=== PATIENT | female | born 1980 | race Caucasian/White ===

== ENCOUNTER 2017-09-25 01:35 | Inpatient (IN) | payer OTHER ==
[~2017-09-25] VITALS: Ht 170.2 cm; Wt 65.0 kg
[2017-09-25] VITALS (81 sets, daily range): BP systolic 102–138; BP diastolic 52–107; PULSE 73–114; RESP 15–20; TEMP 97.8–98.9; O2SAT 99–100
[2017-09-25] MEDS ORDERED: DOXY10TA (01:42)
[2017-09-25] MEDS ORDERED: FAMO1TAB37 PO (01:42)
[2017-09-25] MEDS ORDERED: ePHEDrine/NS 25 MG/5 ML SYRINGE ONE (01:45)
[2017-09-25] MEDS ORDERED: LACTATED RINGER'S 1000 ML INJ 1,000 ML IV SCH (01:47)
[2017-09-25] MEDS ORDERED: LACTATED RINGER'S 1000 ML INJ 1,000 ML IV PRN (01:47)
[2017-09-25] MEDS ORDERED: TERBUTALINE INJ 1 MG/ML AMP ONE (01:48)
--- NOTE | 2017-09-25 01:56 | PD ---
HPI Chief Complaint ROM, ctx Date Seen: Sep 25, 2017 Time Seen: 01:53 Travel History International Travel<30 Days: No Contact w/Intl Traveler<30Days: No Known Affected Area: No History of Present Illness HPI Pt is a 37y/o G1 @ 38.5wks. She has PNC with Dr. Acevedo. She presents this evening with c/o ROM and abdominal pain since 10pm. She states that she has had continued LOF. No VB. +FM. is c/b GERD. She last ate at 7pm ( full meal and ice cream). Weeks Gestation: 38 Para: 0 : 1 History Past Medical History Medical History: Denies Significant Hx Past Surgical History Surgical History: No Previous Surgery Family History Family History: Negative Social History Alcohol Use: No Tobacco Use: No Substance Abuse: No Allergies-Medications (Allergen,Severity, Reaction): Coded Allergies: No Known Allergies (Unverified , 09/25/17) Home Meds Reported Medications Doxylamine-Pyridoxine (Diclegis) 10-10 Mg Tab 09/25/17 Famotidine (Pepcid) 20 Mg Tab, 20 MG PO BID, #60 TAB 0 Refills 09/25/17 Review of Systems Except as stated in HPI: all other systems reviewed are Neg Physical Exam Narrative General: well developed, well nourished, no acute distress HEENT: normocephalic atraumatic, extraocular movements intact, neck supple Abdomen: soft, gravid, nontender, nondistended Uterus: fundus term Extremities: full range of motion Skin: normal coloration, no rashes, no suspicious skin lesions noted Neurologic: cranial nerves 2-12 grossly intact, normal muscle tone, normal gait Psychiatric: normal mood and affect, appropriate FHTs: 140s, +accels, late decelerations, moderate variability [place]: ctx q2-3m Cvx: 4-5/60/-3, posterior Data Data Vital Signs Reviewed: Yes Orders Orders Ephedrine/Ns 25 Mg/5 Ml Syr (Ephedrine/N (09/25/17 01:45) Terbutaline Inj (Brethine Inj) (09/25/17 01:48) Vital Signs (Adult) .ON ADMISSION (09/25/17 01:47) ^ Labor Status (09/25/17 01:47) ^ Non Stress Test (09/25/17 01:47) Admit To Inpatient (09/25/17 ) Vital Signs (Adult) .Per protocol (09/25/17 01:47) Heart (09/25/17 01:47) Amnioinfusion (09/25/17 01:47) Urinary Catheter Management .ONCE (09/25/17 01:47) Lactated Ringer's 1000 Ml Inj (Lr 1000 M (09/25/17 01:47) Lactated Ringer's 1000 Ml Inj (Lr 1000 M (09/25/17 01:47) Sodium Chlorid 0.9% 500 Ml Inj (Ns 500 M (09/25/17 02:00) Sodium Chlor 0.9% 1000 Ml Inj (Ns 1000 M (09/25/17 02:07) Lidocaine 1% Inj (50 Ml) (Xylocaine 1% I (09/25/17 02:00) Citric Acid-Sodium Citrate Liq (Bicitra (09/25/17 02:00) Fentanyl Inj (Fentanyl Inj) (09/25/17 02:00) Fentanyl Inj (Fentanyl Inj) (09/25/17 02:00) Penicillin G Potassium Inj (Pfizerpen-G (09/25/17 02:00) Penicillin G Potassium Inj (Pfizerpen-G (09/25/17 06:00) Complete Blood Count With Diff (09/25/17 01:47) Hold Clot (09/25/17 01:47) Abo/Rh Blood Type (09/25/17 01:47) Urinalysis - C+S If Indicated (09/25/17 01:47) Drug Screen, Random Urine (09/25/17 01:47) Resp Oxygen Non Rebreathe Mask (09/25/17 ) ^ Epidural / Intrathecal Infus (09/25/17 01:47) Oxytocin 30 Units-500ml Premix (Pitocin (09/25/17 02:00) Lidocaine 1% Inj (50 Ml) (Xylocaine 1% I (09/25/17 02:00) Light Mineral Oil (Muri-Lube Oil) (09/25/17 02:00) Inpatient Certification (09/25/17 ) Specimen To Be Collected PRN (09/25/17 01:47) Specimen To Be Collected PRN (09/25/17 01:47) Group B Strep: Positive Rober Royal MD Sep 25, 2017 01:56
[2017-09-25] MEDS ORDERED: LIDOCAINE HCL 1% 50 ML VIAL I-DERMAL PRN (02:00)
[2017-09-25] MEDS ORDERED: fentaNYL 2MCG-BUPIV 0.125% INJ 100 ML ONE ×2 (02:00→08:01)
[2017-09-25] MEDS ORDERED: LIDOCAINE HCL 1% 50 ML VIAL INFIL PRN (02:00)
[2017-09-25] MEDS ORDERED: OXYTOCIN 30 UNITS-500ML PREMIX 500 ML IV ONE ×2 (02:00→12:00)
[2017-09-25] MEDS ORDERED: CITRIC ACID-SODIUM CITRATE LIQ 30 ML UDC PO SCH (02:00)
[2017-09-25] MEDS ORDERED: PENICILLIN G POTASSIUM INJ 5,000,000 UNITS in SODIUM CHLORIDE 0.9% INJ 100 ML IV ONE (02:00)
[2017-09-25] MEDS ORDERED: SODIUM CHLORID 0.9% 500 ML INJ 500 ML IV PRN (02:00)
[2017-09-25] MEDS ORDERED: MINERAL OIL 10 ML VIAL TOPICAL PRN (02:00)
[2017-09-25 02:01] LABS: AUTOMATED NEUTROPHIL # 4.7 TH/MM3 (1.8-7.7); BASOPHIL % 0.4 % (0.0-2.0); EOSINOPHIL # 0.1 TH/MM3 (0-0.4); EOSINOPHIL % 0.7 % (0.0-4.0); HEMOGLOBIN 10.7 GM/DL (11.6-15.3); LYMPH % 27.1 % (9.0-44.0); MEAN CELL VOLUME 90.6 FL (80.0-100.0); MEAN CORPUSCULAR HEMOGLOBIN 31.2 PG (27.0-34.0); MEAN CORPUSCULAR HGB CONC 34.5 % (32.0-36.0); MEAN PLATELET VOLUME 10.7 FL (7.0-11.0); MONO % 6.6 % (0.0-8.0); MONOCYTE # 0.5 TH/MM3 (0-0.9); NEUT % 65.2 % (16.0-70.0); PLATELET COUNT 131 TH/MM3 (150-450); RED BLOOD COUNT 3.42 MIL/MM3 (4.00-5.30); RED CELL DISTRIBUTION WIDTH 13.6 % (11.6-17.2); WHITE BLOOD COUNT 7.2 TH/MM3 (4.0-11.0)
[2017-09-25] MEDS ORDERED: SODIUM CHLOR 0.9% 1000 ML INJ 1,000 ML IV PRN (02:07)
--- NOTE | 2017-09-25 03:18 | PD.LABORPN ---
Subjective Subjective very painful in active labor and distraught about possible section due to initial tracing concerns Objective Vital Signs Vital Signs Date Time Temp Pulse Resp B/P (MAP) Pulse Ox O2 Delivery O2 Flow Rate FiO2 09/25/17 02:40 90 120/59 (79) 100 09/25/17 02:40 91 09/25/17 02:35 97 122/55 (77) 100 09/25/17 02:35 103 09/25/17 02:30 114 114/64 (81) 100 09/25/17 02:30 114 09/25/17 02:26 138/107 (117) 09/25/17 02:25 106 100 09/25/17 02:20 98 100 09/25/17 02:15 96 100 09/25/17 02:10 89 100 09/25/17 02:05 96 100 09/25/17 02:00 90 100 09/25/17 01:55 82 09/25/17 01:54 83 133/65 (87) 09/25/17 01:52 98.0 09/25/17 01:50 81 Objective since terbutaline given and UCs knocked out there are no more decelerations and reasonable BTBV cervix 90%/5/-2 and posterior. EFW 7 pounds and pelvis clinically adequate Weeks Gestation: 38 Gest Age Assessed Date: Sep 25, 2017 Gest Age Assessed Time: 03:16 Pt started active labor?: Yes Active labor start date: Sep 25, 2017 Active labor start time: 00:30 Medical induction of labor?: No Artificial rupture of membrane: No Assessment/Plan Problem List: (1) Third trimester ICD Codes: Z34.93 - Encounter for supervision of normal , unspecified , third trimester (2) heart rate decelerations affecting management of mother ICD Codes: O36.8390 - Maternal care for abnormalities of the heart rate or rhythm, unspecified trimester, not applicable or unspecified Assessment and Plan watch closely post epidural and if needed resume pitocin. If not tolerated with section. patient aware. Radhika Vallecillo MD Sep 25, 2017 03:18
[2017-09-25 03:42] LABS: BILIRUBIN, URINE NEG (NEG); BLOOD, URINE NEG (NEG); GLUCOSE,URINE NEG (NEG); KETONE, URINE NEG (NEG); NITRITE,URINE NEG (NEG); PH, URINE 7.5 (5.0-8.5); SQUAMOUS EPITHELIAL CELL URINE <1 /hpf (0-5); URINE COLOR LIGHT-YELLOW (YELLW/STRAW); URINE LEUKOCYTE ESTERASE NEG (NEG)
[2017-09-25] MEDS ORDERED: OXYTOCIN 30 UNITS-500ML PREMIX 500 ML IV PRN (05:30)
[2017-09-25] MEDS ORDERED: PENICILLIN G POTASSIUM INJ 2,500,000 UNITS in SODIUM CHLORIDE 0.9% INJ 100 ML IV SCH (06:00)
--- NOTE | 2017-09-25 06:27 | PD.LABORPN ---
Subjective Subjective Began feeling UCs as soon as pitocin started at 2 mu/min Objective Vital Signs Vital Signs Date Time Temp Pulse Resp B/P (MAP) Pulse Ox O2 Delivery O2 Flow Rate FiO2 09/25/17 06:00 79 09/25/17 06:00 86 112/64 (80) 100 09/25/17 05:55 86 100 09/25/17 05:50 87 100 09/25/17 05:45 93 09/25/17 05:45 96 117/70 (86) 100 09/25/17 05:40 100 09/25/17 05:40 86 09/25/17 05:35 88 09/25/17 05:35 100 09/25/17 05:30 100 09/25/17 05:30 79 104/62 (76) 09/25/17 05:30 80 09/25/17 05:25 79 09/25/17 05:25 100 09/25/17 05:20 100 09/25/17 05:20 79 09/25/17 05:15 100 09/25/17 05:15 84 118/73 (88) 09/25/17 05:15 89 09/25/17 05:10 79 100 09/25/17 05:05 89 100 09/25/17 05:00 81 09/25/17 05:00 98.9 76 15 108/62 (77) 09/25/17 05:00 100 09/25/17 04:55 80 100 09/25/17 04:50 77 100 09/25/17 04:45 80 103/60 (74) 100 09/25/17 04:45 75 09/25/17 04:40 76 100 09/25/17 04:35 75 100 18 04:30 87 18 04:30 80 111/61 (78) 100 18 04:25 82 100 09/25/17 04:20 82 100 18 04:15 76 1618 04:15 77 110/62 (78) 100 18 04:10 75 100 09/25/17 04:05 81 100 09/25/17 04:00 87 09/25/17 04:00 86 113/64 (80) 100 09/25/17 03:55 87 100 2/16/18 03:50 80 100 2/16/18 03:45 82 104/59 (74) 100 2/16/18 03:45 79 2/16/18 03:40 82 100 2/16/18 03:35 86 100 2/16/18 03:30 86 109/58 (75) 100 2/16/18 03:30 80 2/16/18 03:25 88 100 2/16/18 03:20 87 100 2/16/18 03:15 83 102/52 (69) 100 2/16/18 03:15 82 2/16/18 03:10 89 100 2/16/18 03:05 90 100 2/16/18 03:00 95 106/52 (70) 2/16/18 03:00 90 2/16/18 03:00 15 2/16/18 03:00 100 2/16/18 02:55 93 104/57 (73) 2/16/18 02:55 92 2/16/18 02:55 100 2/16/18 02:50 88 2/16/18 02:50 100 2/16/18 02:50 92 121/62 (81) 2/16/18 02:45 89 116/61 (79) 2/16/18 02:45 100 2/16/18 02:45 91 2/16/18 02:40 90 120/59 (79) 100 2/16/18 02:40 91 2/16/18 02:35 97 122/55 (77) 100 2/16/18 02:35 103 2/16/18 02:30 114 114/64 (81) 100 2/16/18 02:30 114 2/16/18 02:26 138/107 (117) 2/16/18 02:25 106 100 2/16/18 02:20 98 100 2/16/18 02:15 96 100 2/16/18 02:10 89 100 2/16/18 02:05 96 100 2/16/18 02:00 20 2/16/18 02:00 90 100 2/16/18 01:55 82 2/16/18 01:55 100 2/16/18 01:54 83 133/65 (87) 2/16/18 01:52 98.0 2/16/18 01:50 81 2/16/18 01:50 100 Objective 7/90%/-1 infant LOP strip has excellent to marked variability; variables with contractions Weeks Gestation: 38 Gest Age Assessed Date: Sep 25, 2017 Gest Age Assessed Time: 03:16 Pt started active labor?: Yes Active labor start date: Sep 25, 2017 Active labor start time: 00:30 Medical induction of labor?: No Artificial rupture of membrane: No Assessment/Plan Problem List: (1) Third trimester ICD Codes: Z34.93 - Encounter for supervision of normal , unspecified , third trimester (2) heart rate decelerations affecting management of mother ICD Codes: O36.8390 - Maternal care for abnormalities of the heart rate or rhythm, unspecified trimester, not applicable or unspecified Assessment and Plan IUPC placed. amnio infusion keep pitocin at 2 mu/min cautiously optimistic Radhika Vallecillo MD Sep 25, 2017 06:27
[2017-09-25] MEDS ORDERED: ONDANSETRON HCL 4 MG/2 ML VIAL ONE (09:06)
--- NOTE | 2017-09-25 10:48 | PD.OB.DELI ---
Weeks gestation: 38 Gest age assessed date: Sep 25, 2017 Gest age assessed time: 03:16 Pt started active labor?: Yes Active labor start date: Sep 25, 2017 Active labor start time: 00:30 Medical induction of labor?: No Artificial rupture of membrane: No Anesthesia: Epidural Episiotomy: None Vaginal Delivery: Normal Presentation: Occiput anterior Nuchal Cord: None Delayed cord clamping (45 sec): Yes : Female Delivery date: Sep 25, 2017 Delivery time: 10:28 One Minute : 8 Five Minute : 9 Weight: pending Placenta: Spontaneous delivery, Intact Laceration: 2 deg Repair: Chromic interrupted (3-0 on SH for bilateral periurethral), Chromic running (for 2nd degree lac) Estimated blood loss: 300ml Romelia Sunshine MD Sep 25, 2017 10:48
--- NOTE | 2017-09-25 10:50 | HHI.DCPOC ---
Discharge Care Plan Diagnosis: (1) (spontaneous vaginal delivery) Your Health Problems Are: Vaginal delivery Report Symptoms to Your Doctor -Temperature above 100.5 degrees -Redness, of incision or excessive or foul smelling drainage -Unusual pain or calf pain -Increased vaginal bleeding -Painful or difficulty urinating -Feelings of extreme sadness or anxiety after 2 weeks Goals to Promote Your Health * To prevent worsening of your condition and complications * To maintain your health at the optimal level Directions to Meet Your Goals Take your medications as prescribed Follow your dietary instruction Follow activity as directed Ensure plenty of rest for recovery Drink fluids for hydration Keep your appointments as scheduled Take your immunizations and boosters as scheduled If your symptoms worsen call your PCP, if no PCP go to Urgent Care Center or Emergency Room Smoking is Dangerous to Your Health. Avoid second hand smoke Call the 24-hour crisis hotline for domestic abuse at Romelia Sunshine MD Sep 25, 2017 10:50
[2017-09-25] MEDS ORDERED: ALUMINUM/MAGNESIUM/SIMETH 30 ML CUP PO PRN ×2 (11:00→11:30)
[2017-09-25] MEDS ORDERED: BENZOCAINE 20% TOPICAL SPRAY 60 ML CAN TOPICAL PRN ×2 (11:00→11:30)
[2017-09-25] MEDS ORDERED: ONDANSETRON ODT 4 MG TAB PO PRN ×2 (11:00→11:30)
[2017-09-25] MEDS ORDERED: ZOLPIDEM TARTRATE 5 MG TAB PO PRN ×2 (11:00→11:30)
[2017-09-25] MEDS ORDERED: WITCH HAZEL 50%/GLYCERIN 12.5% 40 PAD JAR TOPICAL PRN ×2 (11:00→11:30)
[2017-09-25] MEDS ORDERED: ACETAMINOPHEN 325 MG TAB PO PRN ×2 (11:00→11:30)
[2017-09-25] MEDS ORDERED: OXYTOCIN 30 UNITS-500ML PREMIX 500 ML IV SCH ×2 (11:00→12:00)
[2017-09-25] MEDS ORDERED: SODIUM CHLORIDE 0.9% FLUSH 10 ML FLUSH IV FLUSH PRN ×2 (11:00→11:30)
[2017-09-25] MEDS ORDERED: DOCUSATE SODIUM 50 MG/SENNA 8.6 MG TAB PO PRN ×2 (11:00→11:30)
[2017-09-25] MEDS ORDERED: IBUPROFEN 800 MG TAB PO PRN ×2 (11:00→11:30)
[2017-09-25] MEDS ORDERED: oxyCODONE/ACETAMINOPHEN 5 MG/325 MG TAB PO PRN ×2 (11:30)
[2017-09-25] MEDS ORDERED: ONDANSETRON HCL 4 MG/2 ML VIAL IV PUSH ONE (12:00)
[2017-09-25] MEDS ORDERED: DIPHTH/TETANUS/ACEL PERTUSSIS (BOOSTER) 0.5 ML VIAL/PFS IM ONE (16:00)
[2017-09-25] MEDS ORDERED: MEASLES, MUMPS, RUBELLA VACCINE 0.5 ML VIAL SQ ONE (16:00)
[2017-09-25] MEDS ORDERED: SODIUM CHLORIDE 0.9% FLUSH 10 ML FLUSH IV FLUSH SCH ×2 (21:00)
[2017-09-25] MEDS: IBUPROFEN 400 MG TAB PO SCH (23:50)
[2017-09-26] MEDS: IBUPROFEN 400 MG TAB PO SCH ×3 (03:43→16:00)
[2017-09-26 08:00] VITALS: BP 113/65; PULSE 87; RESP 16; TEMP 98.1; O2SAT 99
[2017-09-26] MEDS ORDERED: IBUP1TAB5 PO (16:02)
[2017-09-26 20:00] VITALS: BP 109/65; PULSE 80; RESP 18; TEMP 98.1
[2017-09-27] MEDS: IBUPROFEN 400 MG TAB PO SCH ×4 (00:46→12:47)
--- NOTE | 2017-09-27 12:25 | HHI.OB ---
Subjective Post Day: 2 Remarks Doing well today Baby is discharged and we are ready to go home Feeling pretty well. Objective Vitals/I&O Vital Signs Date Time Temp Pulse Resp B/P (MAP) Pulse Ox O2 Delivery O2 Flow Rate FiO2 09/26/17 20:00 98.1 80 18 109/65 (80) Objective Remarks GENERAL: Well-nourished, well-developed patient. CARDIOVASCULAR: Regular rate and rhythm without murmurs, gallops, or rubs. RESPIRATORY: Breath sounds equal bilaterally. No accessory muscle use. ABDOMEN/GI: Abdomen soft, non-tender. Fundus: Firm, non-tender at umbilicus. GENITOURINARY: Light to moderate bleeding. EXTREMITIES: No cyanosis or edema, non-tender, without signs of DVT. Medications and IVs Current Medications Medications (Trade) Dose Ordered Sig/Glory Route Start Time Stop Time Status Last Admin (NS Flush) 2 ml BID IV FLUSH 09/25/17 21:00 (NS Flush) 2 ml UNSCH PRN IV FLUSH 09/25/17 11:30 (Tylenol) 650 mg Q4H PRN PO 09/25/17 11:30 (Percocet 5-325 Mg) 1 tab Q4H PRN PO 09/25/17 11:30 (Percocet 5-325 Mg) 2 tab Q4H PRN PO 09/25/17 11:30 (Americaine 20% Top Spr) 1 spray Q4H PRN TOPICAL 09/25/17 11:30 09/25/17 23:42 (Tucks Pads) 1 applic QID PRN TOPICAL 09/25/17 11:30 09/25/17 23:42 (Kaelyn-Colace) 2 tab Q12H PRN PO 09/25/17 11:30 09/26/17 03:44 (Ambien) 5 mg HS PRN PO 09/25/17 11:30 (Mag-Al Plus Susp Liq) 15 ml Q8H PRN PO 09/25/17 11:30 (Zofran Odt) 4 mg Q6H PRN PO 09/25/17 11:30 09/27/17 00:51 (Motrin) 400 mg Q4HR PO 09/25/17 20:00 09/27/17 00:46 Assessment/Plan Problem List: (1) Third trimester ICD Codes: Z34.93 - Encounter for supervision of normal , unspecified , third trimester (2) heart rate decelerations affecting management of mother ICD Codes: O36.8390 - Maternal care for abnormalities of the heart rate or rhythm, unspecified trimester, not applicable or unspecified Assessment and Plan PPD #2 Routine nursing home with motrin RTO in 6 weeks Note from yesterday [place]!!!! Salvatore Ramos MD Sep 27, 2017 12:24
--- NOTE | 2017-10-01 08:37 | HHI.FPPN ---
Addendum to progress note ADDENDUM Reason for addendum: Additonal documentation Additional information Contacted DCF to provide additional information, as meconium drug screen markedly positive for marijuana. Rosemary, #[id number] Odalys Mcallister MD Oct 01, 2017 08:37
== END 2017-09-27 13:38 | disposition home or self-care (01) | DRG 775 ==
LOC: H2EB 01:35 → H1EA 15:49
PROVIDERS: ADMIT Obstetrics & Gynecology; ATTEND Obstetrics & Gynecology
PROC: 10E0XZZ Delivery of Products of Conception, External Approach (ICD-10-PCS; principal; 2017-09-25)
PROC: 0KQM0ZZ Repair Perineum Muscle, Open Approach (ICD-10-PCS; 2017-09-25)
DX: O76 Abnormality in fetal heart rate and rhythm complicating labor and delivery (principal); O99.324 Drug use complicating childbirth; O70.1 Second degree perineal laceration during delivery; O99.62 Diseases of the digestive system complicating childbirth; K21.9 Gastro-esophageal reflux disease without esophagitis; F12.90 Cannabis use, unspecified, uncomplicated; Z37.0 Single live birth; Z3A.38 38 weeks gestation of pregnancy
CPT/HCPCS: 59025; 80307; 81001; 85025; 86900; 86901; G0481; J2405; J2540; J2590; J3105; J7120